=== PATIENT | female | born 1975 | race Caucasian/White ===

== ENCOUNTER 2017-06-27 22:44 | Emergency (ER) | payer OTHER, BC ==
[2017-06-27 22:52] VITALS: BP 166/60
--- NOTE | 2017-06-28 13:01 | CR ---
Chest: Portable view of the chest was obtained. Comparison: No prior chest x-ray. Heart size and mediastinum are normal. Lungs are clear. Minimal scoliosis is noted within the spine. Impression: 1. Incidental findings. Nothing acute is seen on portable chest x-ray. Diagnostic code #2
== END 2017-06-28 02:10 | disposition left against medical advice (07) ==
LOC: JD.ED 22:44
DX: Z53.21 Procedure and treatment not carried out due to patient leaving prior to being seen by health care provider (principal)
CPT/HCPCS: 36415; 71045; 71045-26; 80053; 84484; 85025; 93005; 99285-25

== ENCOUNTER 2018-09-08 06:40 | Day surgery (SDC) | payer OTHER, BC ==
[~2018-09-08 06:40] MED LIST: Lidocaine 1%/Sod Bicarbonate in NS 8.4% 1 ML Syringe IDERM PRN; Sodium Chloride 0.9% 10 ML Syringe FLUSH PRN
[2018-09-08] MEDS ORDERED: Propofol 200 MG/20 ML SDV ONE (07:00)
[2018-09-08] MEDS ORDERED: Midazolam 1 MG/ML 2 ML SDV ONE (07:01)
[2018-09-08] MEDS ORDERED: Ketorolac 30 MG/ML SDV ONE (07:01)
[2018-09-08] MEDS ORDERED: Rocuronium 50 MG/5 ML Vial ONE (07:01)
[2018-09-08] MEDS ORDERED: fentaNYL 100 MCG/2 ML SDV ONE ×2 (07:01→07:20)
[2018-09-08] MEDS ORDERED: Dexamethasone 4 MG/ML 5 ML MDV ONE (07:02)
[2018-09-08] MEDS ORDERED: Ondansetron 4 MG/2 ML SDV ONE ×2 (07:02→07:23)
[2018-09-08] MEDS ORDERED: ceFAZolin 1 GM Vial ONE ×2 (07:16)
[2018-09-08] MEDS ORDERED: HYDROmorphone 0.5 MG/0.5 ML Syringe ONE ×4 (07:20→07:22)
[2018-09-08] MEDS ORDERED: Lidocaine 1% with EPINEPHrine 1:100,000 20 ML MDV ONE (07:21)
[2018-09-08] MEDS: Lactated Ringers 1,000 ML IV SCH ×2 (07:32→11:50)
--- NOTE | 2018-09-08 07:32 | PCM.PREANE ---
Preanesthetic Assessment - Anesthesia/Transfusion/Family Hx Anesthesia History: Prior Anesthesia Reaction Type of Anesthesia Reaction: Allergy Family History of Anesthesia Reaction: No Transfusion History: No Prior Transfusion(s) Intubation History: Unknown - Review of Systems General: No Symptoms Pulmonary: No Symptoms Cardiovascular: No Symptoms Gastrointestinal: No Symptoms Neurological: No Symptoms Other: Reports: None, Easy Bruising - Physical Assessment NPO Status Date: 09/08/18 NPO Status Time: 00:00 Pulse: 82 O2 Sat by Pulse Oximetry: 98 Respiratory Rate: 16 Blood Pressure: 149/59 Temperature: 94.5 C Height: 1.68 m Weight: 77.564 kg ASA Class: 2 Mental Status: Alert & Oriented x3 Airway Class: Mallampati = 3 Dentition: Reports: Dentures Thyro-Mental Finger Breadths: 2 Mouth Opening Finger Breadths: 2 ROM/Head Extension: Full Lungs: Clear to Auscultation, Normal Respiratory Effort Cardiovascular: Regular Rate, Regular Rhythm - Allergies Allergies/Adverse Reactions: Allergies Allergy/AdvReac Type Severity Reaction Status Date / Time prochlorperazine Allergy Other Verified 09/07/18 14:14 [From Compazine] prochlorperazine edisylate Allergy Other Verified 09/07/18 14:14 [From Compazine] prochlorperazine maleate Allergy Other Verified 09/07/18 14:14 [From Compazine] - Blood Blood Available: Yes Product(s) Available: PRBC - Anesthesia Plan Pre-Op Medication Ordered: None - Acknowledgements Anesthesia Type Planned: General Anesthesia Pt an Appropriate Candidate for the Planned Anesthesia: Yes Alternatives and Risks of Anesthesia Discussed w Pt/Guardian: Yes Pt/Guardian Understands and Agrees with Anesthesia Plan: Yes PreAnesthesia Questionnaire HEENT History: Reports: Impaired Vision Other HEENT History: closed nasal fracture, wears contacts, has dentures ( prefers to leave in) Cardiovascular History: Reports: Hypertension Respiratory History: Reports: None Gastrointestinal History: Reports: None DATA ABSTRACTOR History: Reports: Other OB/BYN History: , hysteroscopy Musculoskeletal History: Reports: Other (See Below) Other Musculoskeletal History: arm pain Neurological History: Reports: None Psychiatric History: Reports: None Endocrine/Metabolic History: Reports: None Hematologic History: Reports: None Immunologic History: Reports: None Oncologic (Cancer) History: Reports: None Dermatologic History: Reports: None - Past Surgical History Head Surgeries/Procedures: Reports: None Cardiovascular Surgical History: Reports: None Respiratory Surgical History: Reports: None GI Surgical History: Reports: Cholecystectomy Female Surgical History: Reports: Tubal Ligation Endocrine Surgical History: Reports: None Neurological Surgical History: Reports: None Musculoskeletal Surgical History: Reports: None Oncologic Surgical History: Reports: None Dermatological Surgical History: Reports: None - SUBSTANCE USE Smoking Status *Q: Former Smoker Recreational Drug Use History: No - HOME MEDS Home Medications: Home Meds Celecoxib [CeleBREX] 100 mg PO BID PRN 09/07/18 [History] Lisinopril 20 mg PO DAILY 09/07/18 [History] - CURRENT (IN HOUSE) MEDS Current Meds: Current Medications Lactated Ringer's (Ringers, Lactated) 1,000 mls @ 125 mls/hr IV ASDIRECTED EARNEST Stop: 09/08/18 23:00 Lidocaine/Sodium Bicarbonate (Buffered Lidocaine 1% In Ns 8.4%) 0.25 ml IDERM ONETIME PRN PRN Reason: Prior to IV Start Stop: 09/08/18 18:00 Sodium Chloride (Saline Flush) 10 ml FLUSH ASDIRECTED PRN PRN Reason: Keep Vein Open Stop: 09/08/18 18:00 Discontinued Medications Cefazolin Sodium (Ancef) Confirm Administered Dose 1 gm .ROUTE .STK-MED ONE Stop: 09/08/18 07:17 Cefazolin Sodium (Ancef) Confirm Administered Dose 1 gm .ROUTE .STK-MED ONE Stop: 09/08/18 07:17 Dexamethasone (Dexamethasone) Confirm Administered Dose 20 mg .ROUTE .STK-MED ONE Stop: 09/08/18 07:03 Fentanyl (Sublimaze) Confirm Administered Dose 100 mcg .ROUTE .STK-MED ONE Stop: 09/08/18 07:02 Fentanyl (Sublimaze) Confirm Administered Dose 100 mcg .ROUTE .STK-MED ONE Stop: 09/08/18 07:21 Hydromorphone HCl (Dilaudid) Confirm Administered Dose 0.5 mg .ROUTE .STK-MED ONE Stop: 09/08/18 07:21 Hydromorphone HCl (Dilaudid) Confirm Administered Dose 0.5 mg .ROUTE .STK-MED ONE Stop: 09/08/18 07:22 Hydromorphone HCl (Dilaudid) Confirm Administered Dose 0.5 mg .ROUTE .[facility] ONE Stop: 09/08/18 07:23 Hydromorphone HCl (Dilaudid) Confirm Administered Dose 0.5 mg .ROUTE .[facility]-MED ONE Stop: 09/08/18 07:23 Ketorolac Tromethamine (Toradol) Confirm Administered Dose 30 mg .ROUTE .[facility]- MED ONE Stop: 09/08/18 07:02 Lidocaine/Epinephrine (Xylocaine 1% With Epinephrine 1:100,000) Confirm Administered Dose 20 ml .ROUTE .[facility] ONE Stop: 09/08/18 07:22 Midazolam HCl (Versed 1 Mg/Ml) Confirm Administered Dose 2 mg .ROUTE .[facility] ONE Stop: 09/08/18 07:02 Ondansetron HCl (Zofran) Confirm Administered D[facility] 4 [facility] Stop: 09/08/18 07:03 Ondansetron HCl (Zofran) Confirm Administered Dose 4 mg .ROUTE .[facility] ONE Stop: 09/08/18 07:24 Propofol (Diprivan 20 Ml) Confirm Administered Dose 200 mg [facility] Stop: 09/08/18 07:01 Rocuronium [employer] (Zemuron) Confirm Administered Dose 50 mg [facility] Stop: 09/08/18 07:02
[2018-09-08] MEDS ORDERED: Scopolamine 1.5 MG Transdermal Patch TRDERM SCH (07:40)
[2018-09-08] MEDS ORDERED: Lactated Ringers 1,000 ML ONE (08:15)
[2018-09-08] MEDS ORDERED: ePHEDrine/Normal Saline 25 MG/5 ML Syringe ONE (08:42)
[2018-09-08] MEDS ORDERED: Neostigmine Methylsulfate 1 MG/ML 5 ML Syringe ONE (08:54)
--- NOTE | 2018-09-08 09:19 | PCM.OPNOTE ---
- General Post-Op/Procedure Note Date of Surgery/Procedure: 09/08/18 Operative Procedure(s): Total vaginal hysterectomy Findings: SVE with a mobile, mid-position uterus. Cervix and uterus grossly normal. 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 The patient was taken to the Operating Room where general anesthesia was induced without complication and found to be adequate. The patient was placed in dorsal lithotomy with Robbi stirrups and an exam under anesthesia revealed the findings detailed above. The patient was then prepped and draped in the usual sterile fashion. Quintanilla catheter was placed into the bladder. A weighted speculum was placed in the vagina, and the cervix was grasped with a single tooth tenaculum. The cervix was injected circumferentially with ~15 cc of 1% lidocaine with dilute epinephrine. The cervix was then circumferentially incised with a scalpel. The posterior cul-de-sac was entered sharply without difficulty. An 0-Vicryl pop-off suture was placed posteriorly to include the posterior vaginal mucosa and the posterior peritoneum at the 12:00 position. The short weighted speculum was replaced with a long weighted speculum into the peritoneal cavity posteriorly. The bladder was dissected away from the pubovesical cervical fascia anteriorly with a sponge and blunt dissection. The uterosacral ligaments were grasped on either side with the Ligasure, cauterized , and transected. Hemostasis was assured. A raytec was used for further blunt dissection of the bladder away from the pubovesical cervical fascia and then the anterior cul de sac was entered sharply with Metzenbaum scissors. The cardinal ligaments were then serially clamped on both sides with the Ligasure, cauterized, and transected. The uterine arteries were then clamped with the Ligasure, cauterized, and transected. Hemostasis was adequate. Both cornua were then clamped, cauterized, and transected. The uterus was then removed. The posterior peritoneum was then closed with a running 0 vicryl suture. The vaginal cuff was closed in a running locked fashion with 0-Vicryl. Hemostasis was noted. The quintanilla catheter was removed. All sponge, lap, needle, and instrument counts were correct x 2. The patient tolerated the procedure well and there were no complications.
--- NOTE | 2018-09-08 09:26 | PCM.POSTAN ---
POST ANESTHESIA ASSESSMENT - VITAL SIGNS Pulse Rate: 80 SaO2: 98 Resp Rate: 12 Blood Pressure: 123/98 - RESPIRATORY Respiratory Status: Respiratory Rate WNL, Airway Patent, O2 Saturation Stable, Supplemental Oxygen - CARDIOVASCULAR CV Status: Pulse Rate WNL, Blood Pressure Stable - GASTROINTESTINAL GI Status: No Symptoms - POST OP HYDRATION Hydration Status: Adequate & Stable
--- NOTE | 2018-09-08 10:04 | PCM48HPAN ---
Post Anesthesia Note - EVALUATION WITHIN 48HRS OF ANESTHETIC Vital Signs in Normal Range: Yes Patient Participated in Evaluation: Yes Respiratory Function Stable: Yes Airway Patent: Yes Cardiovascular Function Stable: Yes Hydration Status Stable: Yes Pain Control Satisfactory: Yes Nausea and Vomiting Control Satisfactory: Yes Mental Status Recovered: Yes Pulse Rate: 80 Resp Rate: 18 Temperature: 94.5 C Blood Pressure: 123/98 - COMMENTS/OBSERVATIONS Free Text/Narrative:: To home when discharged by surgeon- no anesthesia problems or complications. Doing well.
[2018-09-08] MEDS ORDERED: Celecoxib 100 MG Cap PO PRN (10:50)
[2018-09-08 13:04] VITALS: BP 115/56
[2018-09-09] MEDS ORDERED: Lisinopril 10 MG Tab PO SCH (09:00)
== END 2018-09-08 13:40 | disposition home or self-care (01) ==
LOC: JD.SDS 06:40
PROVIDERS: ATTEND Obstetrics & Gynecology
DX: D25.9 Leiomyoma of uterus, unspecified (principal); N80.0 Endometriosis of uterus; N72 Inflammatory disease of cervix uteri; I10 Essential (primary) hypertension; Z87.891 Personal history of nicotine dependence; Z88.8 Allergy status to other drugs, medicaments and biological substances; Z79.899 Other long term (current) drug therapy
CPT/HCPCS: 00944; 36415; 80048; 85025; 86850; 86900; 86901; A9270-GY; J0690; J1100; J1170; J1885; J2250; J2405; J2704; J2710; J3010; J7050; J7120

== ENCOUNTER 2020-10-21 17:16 | Emergency (ER) | payer BC, OTHER ==
[2020-10-21 17:32] VITALS: BP 143/55; PULSE 79
[2020-10-21] MEDS ORDERED: Ketorolac 30 MG/ML SDV IM ONE (17:49)
--- NOTE | 2020-10-21 17:58 | EDM.PDOC ---
ED HPI GENERAL MEDICAL PROBLEM - General Chief Complaint: Burn Stated Complaint: LT FINGER STACK Time Seen by Provider: 10/21/20 17:31 Source of Information: Reports: Patient, RN Notes Reviewed History Limitations: Reports: No Limitations - History of Present Illness INITIAL COMMENTS - FREE TEXT/NARRATIVE: Patient is a 45-year-old female who presents to the ER for the evaluation of multiple stack on the pads of her left fingers. Patient notes she was grilling outside, and ended up touching a hot pot with her second third and fourth digits on her left hand. This resulted in this partial-thickness stack to all 3 fingers. This is only on the distal anterior portion of the patient's hand. Notes that when she keeps it in cold water it seems to make it better however when she takes it out in roughly 5 to 10 minutes, does seem to start burning again, she did try some topical Neosporin to the area however she is just not getting much pain relief at home. She did try some Tylenol, and this helps a little bit but just not enough. She is a fairly healthy person otherwise, is denying any past medical history. Patient denies any other sick-like symptoms, fever/chills, cough/shortness of breath, nausea/vomiting/diarrhea. She states she is not up-to-date on her tetanus vaccine today, and she would not like to be updated if at all possible. Treatments SPRING TESTER: Reports: Acetaminophen Left Hand Pain Score (Numeric/FACES): 4 - Related Data Allergies Allergy/AdvReac Type Severity Reaction Status Date / Time prochlorperazine AdvReac Severe Seizure Verified 10/21/20 17:32 [From Compazine] prochlorperazine edisylate AdvReac Severe Seizure Verified 10/21/20 17:32 [From Compazine] prochlorperazine maleate AdvReac Severe Seizure Verified 10/21/20 17:32 [From Compazine] Home Meds: Home Meds Celecoxib [CeleBREX] 100 mg PO BID PRN 09/07/18 [History] Lisinopril 10 mg PO DAILY 09/07/18 [History] Past Medical History HEENT History: Reports: Impaired Vision Other HEENT History: closed nasal fracture, wears contacts, has dentures (prefers to leave in) Cardiovascular History: Reports: Hypertension Respiratory History: Reports: None Gastrointestinal History: Reports: None TOURIST ADVISER History: Reports: Other TOURIST ADVISER History: Musculoskeletal History: Reports: Other (See Below) Other Musculoskeletal History: arm pain Neurological History: Reports: None Psychiatric History: Reports: None Endocrine/Metabolic History: Reports: None Hematologic History: Reports: None Immunologic History: Reports: None Oncologic (Cancer) History: Reports: None Dermatologic History: Reports: None - Past Surgical History GI Surgical History: Reports: Cholecystectomy Female Surgical History: Reports: Hysterectomy, Tubal Ligation Social & Family History - Family History Family Medical History: No Pertinent Family History - Tobacco Use Tobacco Use Status *Q: Never Tobacco User - Caffeine Use Caffeine Use: Reports: Coffee - Recreational Drug Use Recreational Drug Use: No ED ROS GENERAL - Review of Systems Review Of Systems: Comprehensive ROS is negative, except as noted in HPI. ED EXAM, BURN/SMOKE INHALATION - Physical Exam Exam: See Below Exam Limited By: No Limitations General Appearance: Alert, WD/WN, No Apparent Distress Respiratory: No Respiratory Distress, Lungs Clear, Normal Breath Sounds, No Accessory Muscle Use, Chest Non-Tender Cardiovascular: Normal Peripheral Pulses, Regular Rate, Rhythm, No Edema Peripheral Pulses: 2+: Radial (L), Radial (R) Extremities: Normal Range of Motion, Normal Capillary Refill Neurological: Alert, Oriented, Normal Cognition, No Motor/Sensory Deficits Psychiatric: Normal Affect, Normal Mood Skin Exam: Warm, Dry, Intact, Normal Color, No Rash, Other (3 stack to, one on the second digit, third digit and fourth digit, all are partial-thickness, and are intact at this time. This does take up most of the tip of the finger from the DIP to the terminal end of the finger.) Course - Vital Signs Last Recorded V/S: Last Vital Signs Temp 96.8 F L 10/21/20 17:29 Pulse 79 10/21/20 17:29 Resp 16 10/21/20 17:29 BP 143/55 H 10/21/20 17:29 Pulse Ox 99 10/21/20 17:29 - Re-Assessments/Exams Free Text/Narrative Re-Assessment/Exam: 10/21/20 17:53 Patient presents to the ER for her left finger stack. For today's purposes we will get her IM Toradol, as she states she does not do well with pain meds. We have educated her on general burn management, she verbalized understanding. We will have the nurse wrap her hand with bacitracin and gauze and show the how to provide dressing changes over the next few days. Departure - Departure Time of Disposition: 17:58 Disposition: Home, Self-Care 01 Condition: Good Clinical Impression: Burn of multiple fingers excluding thumb Qualifiers: Encounter type: initial encounter Laterality: left Burn degree: partial thickness (2nd degree) Qualified Code(s): T23.232A - Burn of second degree of multiple left fingers (nail), not including thumb, initial encounter - Discharge Information *PRESCRIPTION DRUG MONITORING PROGRAM REVIEWED*: No *COPY OF PRESCRIPTION DRUG MONITORING REPORT IN PATIENT SOHAN: No Instructions: Burn Care, Adult, [id number] Referrals: Sindi Mckay PA-C [Primary Care Provider] - Additional Instructions: You were evaluated in the ER today for stack on your left fingers. You have been given a prescription for Naprosyn, you will need to take 1 tablet 2 times a day for further pain management. Please apply bacitracin to the areas topically and keep them covered with gauze over the next few days. The blisters themselves will rupture, once they do, you may try to cut away the excess skin. Please note that the skin underneath will be somewhat tender as well. You may continue to use bacitracin to the area until it is no longer tender. Over the next 24 hours or so, you might want to use ice packs to help relieve some of the pain and swelling. If you should develop redness, swelling, drainage from the sites, or any worsening symptoms, please do not hesitate to return to the ER for further evaluation however this should get better in a few days. But due to the stack being on the fingers it might be somewhat bothersome for you especially since your left hand dominant. Sepsis Event Note (ED) - Evaluation Sepsis Screening Result: No Definite Risk - Focused Exam Vital Signs: Vital Signs Temp Pulse Resp BP Pulse Ox 10/21/20 17:29 96.8 F L 79 16 143/55 H 99
== END 2020-10-21 18:30 | disposition home or self-care (01) ==
LOC: JD.ED 17:16
DX: T23.232A Burn of second degree of multiple left fingers (nail), not including thumb, initial encounter (principal); Z88.8 Allergy status to other drugs, medicaments and biological substances; X19.XXXA Contact with other heat and hot substances, initial encounter
CPT/HCPCS: 16020; 96372; 99283; J1885